=== PATIENT | female | born 1995 | race Caucasian/White ===

== ENCOUNTER 2017-09-24 17:39 | Emergency (ER) | payer MEDICAID ==
[~2017-09-24] VITALS: Ht 172.7 cm; Wt 73.0 kg
[2017-09-24] MEDS ORDERED: ACETAMINOPHEN 500MG TABLET PO ONE (18:00)
[2017-09-24] MEDS ORDERED: ACETAMINOPHEN 325MG TABLET PO ONE (18:45)
[2017-09-24 19:08] VITALS: BP 118/82
== END 2017-09-24 19:43 | disposition home or self-care (01) ==
LOC: ER 18:26
DX: S02.2XXA Fracture of nasal bones, initial encounter for closed fracture (principal); Z88.5 Allergy status to narcotic agent; Y08.89XA Assault by other specified means, initial encounter
CPT/HCPCS: 70450; 70486; 81025; 99284